=== PATIENT | male | born 1990 | race Caucasian/White ===

== ENCOUNTER 2017-04-04 11:36 | Emergency (ER) | payer OTHER | END 2017-04-04 12:50 | disposition home or self-care (01) | LOC: ER1 11:36 | DX: T78.40XA Allergy, unspecified, initial encounter (principal); I10 Essential (primary) hypertension; Z79.899 Other long term (current) drug therapy; X58.XXXA Exposure to other specified factors, initial encounter | CPT/HCPCS: 96372; 99282; J1100; Q0163 ==

== ENCOUNTER 2021-12-13 14:06 | Emergency (ER) | payer MEDICAID ==
[~2021-12-13 14:06] MED LIST: ANAPROX DS550 MG PO; FLEXERIL 10 MG10 MG PO
[2021-12-13 14:37] LABS: HEMOGLOBIN 17.5 gm/dl (14.0-17.5); RED BLOOD COUNT 5.52 M/UL (4.20-5.50); WHITE BLOOD COUNT 10.8 K/UL (4.5-11.0)
[2021-12-13 15:06] LABS: BUN/CREATININE RATIO 13 (0-10)
== END 2021-12-13 17:09 | disposition home or self-care (01) ==
LOC: ER1 14:06
PROVIDERS: Student in an Organized Health Care Education/Training Program
DX: R00.2 Palpitations (principal); F17.200 Nicotine dependence, unspecified, uncomplicated
CPT/HCPCS: 71045; 80053; 82550; 82553; 83874; 84484; 85025; 93005; 99285

== ENCOUNTER → 2022-01-05 | Outpatient (CLI) | payer OTHER | LOC: HEART 5 14:45 | DX: R00.2 Palpitations (principal) ==